=== PATIENT | female | born 1995 | race Caucasian/White ===

== ENCOUNTER 2017-08-04 13:21 | Emergency (ER) | payer SELFPAY ==
[2017-08-04 13:37] VITALS: BP 142/70
--- NOTE | 2017-08-04 13:54 | ERNOTE ---
Integumentary HPI - Narrative Date of Service: 08/04/17 - General Presenting Symptoms: other - eye swelling and pain Time Seen by Provider: 08/04/17 13:38 Source: patient, old records - Immun/Allergies/Home Medications Allergies/Adverse Reactions: Allergies Allergy/AdvReac Type Severity Reaction Status Date / Time No Known Allergies Allergy Unverified 08/04/17 13:37 Home Medications: HOME MEDICATIONS NK [No Home Medication] 08/04/17 [Last Taken Unknown] - History of Present Illness Narrative: Pt. comes in with c/o swelling on her R lower eye lid since 0700 this morning. Pt. denies any SOB, CP, NVD, fever, vision changes or discharge. Pt. denies any prehospital treatment, aleviating factors or aggravating factors. Review of Systems - Review of Systems Constitutional: Present: no symptoms reported. Absent: recent illness, fever, chills, weakness, fatigue EYE: Present: eye pain, tearing. Absent: eye discharge, blurred vision, double vision, vision changes ENT: Present: no symptoms reported. Absent: nose congestion, nasal drainage, sore throat Respiratory: Present: no symptoms reported. Absent: shortness of breath, cough , wheezing Cardiology: Present: no symptoms reported. Absent: chest pain, palpitations, edema Gastrointestinal/Abdominal: Present: no symptoms reported. Absent: nausea, vomiting, diarrhea Genitourinary: Present: no symptoms reported Musculoskeletal: Present: no symptoms reported. Absent: back pain, joint pain Skin: Present: no symptoms reported. Absent: rash, change in hair/nails Neurological: Present: no symptoms reported. Absent: headache, dizziness/light- headedness, numbness, tingling Endocrine: Present: no symptoms reported Hematologic/Lymphatic: Present: no symptoms reported All Other Systems: All systems neg except as marked - Patient's Past Medical History Patient History - Medical: No pertinent hx Patient History - Cardiac/Respiratory: No pertinent hx Patient History - Cancer: No Hx of Cancer Patient History - Surgical Procedures: No surgical history Patient History - Other: Other LMP (Calendar): 07/28/17 - Social History Living Situations: home Abuse History: No History of abuse Psych History: No pertinent hx Alcohol Use: none Drug Use: none Physical Exam - Physical Exam General Appearance: Present: wd/wn, alert, no apparent distress Head Exam: Present: normal inspection, no evidence of injury Eye Exam: PERRL: bilateral, EOMI: bilateral, Eyelid inflammation: right - lower Ears, Nose, Throat: Present: normal ENT inspection, normal pharynx Respiratory: Present: no respiratory distress, normal breath sounds, no accessory muscle use, chest nontender, lungs clear Cardiovascular/Chest: Present: regular rate, rhythm, no murmur, normal peripheral pulses Neurological Exam: Present: alert, oriented, normal mood/affect, no motor/ sensory deficits ED Progress - Vital Signs Patient's Vital Signs:: I have reviewed the patient's vital signs. Vital Signs: Vital Signs 08/04/17 13:31 Temperature 36.0 C L Pulse Rate 93 Respiratory 18 Rate Blood Pressure 142/70 O2 Sat by Pulse 97 Oximetry - Progress/Reassessment Chief Complaint: Eye Injury/Trauma Progress:: Unchanged Departure Clinical Impression: Plugged tear duct - Departure Disposition: Home self-care Condition: Good Instructions: Dacryocystitis Additional Instructions: While your tear duct is not infected at this time it could become so please massage tear duct as described in instructions four times a day for 2 days then follow up with [facility] or Dr Richard.
== END 2017-08-04 13:56 | disposition home or self-care (01) ==
LOC: ER 13:21
DX: H04.551 Acquired stenosis of right nasolacrimal duct (principal)